=== PATIENT | female | born 1935 | race Caucasian/White ===

== ENCOUNTER 2018-01-23 16:09 | Inpatient (IN) | payer OTHER ==
[~2018-01-23] VITALS: Ht 152.4 cm; Wt 54.4 kg
[2018-01-23] MEDS ORDERED: SIMVASTATIN20 MG (16:28)
[2018-01-23] MEDS ORDERED: TRANDOLAPRIL2 MG (16:29)
[2018-01-24] MEDS ORDERED: ALLERCLEAR10 M1 (00:16)
[2018-01-24] MEDS ORDERED: TENORMIN50 MG (00:16)
[2018-01-24] MEDS ORDERED: CEFDINIR300 MG (00:16)
== END 2018-01-26 14:26 | disposition designated cancer center or children's hospital (05) | DRG 282 ==
LOC: ER 16:09 → ICU-2 22:20
PROC: B246ZZZ Ultrasonography of Right and Left Heart (ICD-10-PCS; principal; 2018-01-24)
DX: I21.4 Non-ST elevation (NSTEMI) myocardial infarction (principal); I10 Essential (primary) hypertension

== ENCOUNTER 2018-09-02 08:00 | Outpatient (CLI) | payer OTHER ==
[~2018-09-02 08:00] MED LIST: ALLERCLEAR10 M1; CEFDINIR300 MG; SIMVASTATIN20 MG; TENORMIN50 MG; TRANDOLAPRIL2 MG
== END 2018-09-02 17:00 | disposition home or self-care (01) ==
LOC: RAD 08:00
DX: R05 Cough (principal); J45.40 Moderate persistent asthma, uncomplicated

== ENCOUNTER 2019-05-04 08:04 | Emergency (ER) | payer OTHER ==
[~2019-05-04] VITALS: Ht 152.4 cm; Wt 54.4 kg
[2019-05-04] MEDS ORDERED: COZAAR50 MG PO (08:20)
[2019-05-04] MEDS ORDERED: PLAVIX75 MG PO (08:21)
[2019-05-04] MEDS ORDERED: INDAPAMIDE2.5 MG PO (08:22)
[2019-05-04] MEDS ORDERED: TOPROL XL25 M1 PO (08:23)
[2019-05-04] MEDS ORDERED: INTESTINEX680 M2 PO (12:15)
== END 2019-05-04 12:25 | disposition home or self-care (01) ==
LOC: ER 08:04
DX: R19.7 Diarrhea, unspecified (principal)

== ENCOUNTER 2021-07-20 10:53 | Emergency (ER) | payer OTHER ==
[~2021-07-20] VITALS: Ht 152.4 cm; Wt 54.4 kg
[~2021-07-20 10:53] MED LIST changes: +COZAAR50 MG PO; +INDAPAMIDE2.5 MG PO; +INTESTINEX680 M2 PO; +PLAVIX75 MG PO; +TOPROL XL25 M1 PO
[2021-07-20] MEDS ORDERED: PLAVIX75 MG PO (11:30)
[2021-07-20] MEDS ORDERED: COZAAR50 MG PO (11:30)
[2021-07-20] MEDS ORDERED: TOPROL XL25 M1 PO (11:30)
[2021-07-20] MEDS ORDERED: ECOTRIN81 MG PO (11:31)
== END 2021-07-20 17:59 ==
LOC: ER 10:53
DX: R60.0 Localized edema (principal); I10 Essential (primary) hypertension; Z20.822 Contact with and (suspected) exposure to COVID-19; I87.2 Venous insufficiency (chronic) (peripheral)

== ENCOUNTER 2023-03-30 07:13 | Outpatient (CLI) | payer OTHER ==
[~2023-03-30 07:13] MED LIST changes: +ECOTRIN81 MG PO
== END 2023-03-30 11:01 | disposition home or self-care (01) ==
LOC: TOM 07:13
PROVIDERS: ATTEND Internal Medicine Cardiovascular Disease
DX: I15.0 Renovascular hypertension (principal)
CPT/HCPCS: 74160; Q9965; 74175

== ENCOUNTER 2024-03-14 09:47 | Outpatient (CLI) | payer OTHER | END 2024-03-14 09:49 | disposition home or self-care (01) | LOC: NUCLEAR 09:47 | PROVIDERS: ATTEND Internal Medicine | DX: I73.9 Peripheral vascular disease, unspecified (principal) ==